=== PATIENT | male | born 2000 | race Caucasian/White ===

== ENCOUNTER 2020-12-07 19:09 | Emergency (ER) | payer BC ==
[~2020-12-07] VITALS: Ht 165.1 cm; Wt 54.7 kg
[2020-12-07 19:12] VITALS: BP 122/72
--- NOTE | 2020-12-07 19:29 | NUR ---
pt c/o right hand pain after punching wall. neuro intact.
== END 2020-12-07 20:36 | disposition home or self-care (01) ==
LOC: ED 20:33
DX: S60.221A Contusion of right hand, initial encounter (principal); W22.8XXA Striking against or struck by other objects, initial encounter; Y93.89 Activity, other specified; Y92.488 Other paved roadways as the place of occurrence of the external cause; Y99.8 Other external cause status
CPT/HCPCS: 99283